=== PATIENT | male | born 1955 | race Caucasian/White ===

== ENCOUNTER 2025-07-08 14:44 | Emergency (ER) | payer MEDICARE, OTHER, SELFPAY ==
[2025-07-08 14:46] VITALS: BP 146/96
[2025-07-08 15:22] LABS: Hematocrit 39.6 % (39.0-52.0); Hemoglobin 13.8 g/dL (13.0-18.0); Mean Corp Hgb Conc. 34.8 g/dL (33.0-37.0); Mean Corpuscular Volume 89.2 fL (80.0-94.0); Platelet Count 256 10^3/uL (130-400); Red Cell Dist. Width 12.7 % (11.5-14.5)
[2025-07-08 15:29] LABS: Blood Urea Nitrogen 12 mg/dl (9-20); Calcium 9.3 mg/dl (8.4-10.2); Carbon Dioxide 29 mmol/L (22-30); Chloride 100 mmol/L (98-107); Glucose 109 mg/dl (70-99); Potassium 3.7 mmol/L (3.5-5.1); Sodium 134 mmol/L (135-145); eGFR > 60.00
--- NOTE | 2025-07-08 17:45 | ED.GENMED ---
History of Present Illness
General
Chief Complaint: DVT/Possible Blood Clot
Source: patient
Exam Limitations: none
Time Seen by Provider: 07/08/25 16:41
Nursing documentation reviewed up to this point in time: agreed with
History of Present Illness
History of Present Illness:
69-year-old male past medical history of CAD hypertension hyperlipidemia presenting to the emergency department today with concerns of right leg pain. Had a total knee replacement 6 days ago otherwise felt well at that time has been constipated
since with some nausea felt lightheaded on the toilet as well with straining. Has noticed some worsening right calf pain. Home visiting nurse recommended going to the ER for assessment of possible clot. Denies specific chest pain or palpitations.
No history of blood clots.
Past History
Past History
ED Past Medical History: CAD, HTN and Hypercholesterolemia
ED Past Surgical History: Cardiac and Orthopedic
Social History
Tobacco: Non-smoker
Alcohol: None
Drug: None
Living: with family
Employment: Employed
Family History
Family History: Other (father with CA)
Review of Systems
Review of Systems
Allergies reviewed?: Yes
All Other Systems: ROS reviewed and negative except as documented in HPI and ROS
Phy Exam
Physical Exam
Physical Exam:
GENERAL: Alert , in no apparent distress
EYE: pupils equal and reactive
NECK: Supple, no significant adenopathy.
ENT: o/p clr, mmm.
CARDIAC: Regular rate and rhythm .
LUNGS: Clear breath sounds bilaterally, no acute respiratory distress, no wheezes/rales/rhonchi
ABDOMEN: Soft, without focal tenderness, no r/g, no cvat
NEUROLOGICAL: Alert and oriented, no focal neuro deficits
SKIN: Warm and dry, skin intact.
MUSCULOSKELETAL: Bandage in place overlying the right anterior surrounding ecchymosis to the right knee as well as the medial thigh of the right leg, diffuse edema, well perfused.
PSYCH: Normal and appropriate interaction.
Course
Orders/Labs/Results
Orders:
Orders
07/08/25 15:07
Basic Metabolic Panel Urgent
CBC/No Diff [Complete Blood Count/No Diff] Urgent
07/08/25 15:29
US Periph Venous LOWER Ext RT Urgent
Comment:
Reason For Exam: pain
07/08/25 17:24
EKG [Electrocardiogram (*1)] Urgent
Reason for Study: Fatigue / Weakness
EKG- Treatment ONCE
07/08/25 17:38
0.9% Sodium Chloride 1000 ml [Nss] 1,000 ml IV BOLUS
Metoclopramide [Reglan] 10 mg IV NOW STA
Abnormal Lab Results
07/08/25
15:07
WBC 13.2 H 10^3/uL
(4.8-10.8)
RBC 4.44 L 10^6/uL
(4.70-6.10)
MCH 31.1 H pg
(27.0-31.0)
Sodium 134 L mmol/L
(135-145)
Glucose 109 H mg/dl
(70-99)
07/08/25 15:07
07/08/25 15:07
Vital Signs
Initial and Last Documented VS:
Initial Vital Signs
Temp Pulse Resp BP Pulse Ox
97.7 F 99 18 146/96 98
07/08/25 14:46 07/08/25 14:46 07/08/25 14:46 07/08/25 14:46 07/08/25 14:46
Last Documented Vital Signs
Temp Pulse Resp BP Pulse Ox
97.7 F 90 18 132/68 98
07/08/25 14:46 07/08/25 19:28 07/08/25 19:28 07/08/25 19:28 07/08/25 19:28
MDM/Problems Addressed
MDM/Problems Addressed:
69-year-old male presenting to the emergency department today with concerns of right leg pain as well as constipation and nausea over the past few days. Recently had right-sided total knee replacement 6 days ago. Ultrasound did not show signs of
DVT labs unremarkable. Headache improved after Reglan no signs of emergent process advised for close outpatient follow-up. Return precautions given.
*Pulse Oximetry
SaO2: 98
Oxygen Mode of Delivery: Room air
Patient hypoxic: no (98)
*Critical Care Note
Total Time (30-74mins, 75-104mins- exclusive of procedures): Not Applicable
ED Attending Note
-
Portions of this chart may have been created with voice recognition software.� Occasional wrong word or��sound alike� substitutions may have occurred due to the inherent limitations of voice recognition software.
Discharge Plan
Departure
Patient Disposition: Home (Routine Discharge)
Date of Disposition: 07/08/25
Time of Disposition: 19:49
Patient with high blood pressure during this ER visit?: No
Condition: Good
Covid-19: Not Applicable
Discharge Problem:
Constipation, Leg pain, Headache
Prescriptions:
New
metoclopramide HCl [Reglan] 10 mg tablet
10 mg PO Q6H PRN (Reason: nausea and vomiting) Qty: 7 0RF
No Action
atorvastatin 20 MG tablet
20 mg PO QPM
ondansetron HCl 4 MG tablet
4 mg PO Q6HPRN PRN (Reason: nausea)
venlafaxine [Effexor XR] 150 MG capsule,extended release 24hr
150 mg PO DAILY
Patient Comments:
Per [facility] pharm[facility] has not been picked up since Dec 2019
modafinil 200 MG tablet
200 mg PO DAILY
aspirin 325 MG tablet,delayed release (DR/EC)
325 mg PO DAILY
trazodone 100 MG tablet
200 mg PO DAILY
oxycodone 5 MG tablet
1 - 2 tab PO Q6HPRN PRN (Reason: pain)
amlodipine-benazepril 1 EACH capsule
1 ea PO DAILY
Referrals:
Real Braden DO [Family Provider, Family Practice]
Activity Restrictions/Additional Instructions:
You came to the emergency department today with multiple symptoms. Here there is no evidence of blood clot on your ultrasound your labs did not show any emergent findings. Please take the Reglan every 8 hours as needed for nausea. You can also
take MiraLAX once daily as well as magnesium citrate to help with your constipation. Return for any worsening, new or concerning symptoms.
Interventions
Interventions:
*Risk Screen - Suicide Last Done: 07/08/25 14:46
*Nursing Disposition Last Done: 07/08/25 19:53
ED- Cardiac Assessment Last Done: 07/08/25 16:10
ED- Pulmonary Assessment Last Done: 07/08/25 16:10
ED-Peripheral Vascular Assessment Last Done: 07/08/25 16:10
ED-Skin Assessment Last Done: 07/08/25 16:10
Discharge Date and Time
Discharge Date/Time: 07/08/25 20:17
Print Language: [place]AST [place]
[2025-07-08] MEDS: NSS 1000 IV (17:46)
[2025-07-08] MEDS: REGLAN 10 MG IV (17:46)
[2025-07-08 19:28] VITALS: BP 132/68
== END 2025-07-08 20:17 | disposition home or self-care (01) ==
LOC: EMR 14:44
PROVIDERS: Emergency Medicine; EMERGENCY PHYSICIAN Emergency Medicine; FAMILY PHYSICIAN Family Medicine
DX: K59.00 Constipation, unspecified (principal); M79.661 Pain in right lower leg; R51.9 Headache, unspecified; I25.10 Atherosclerotic heart disease of native coronary artery without angina pectoris; I10 Essential (primary) hypertension; E78.00 Pure hypercholesterolemia, unspecified; Z96.651 Presence of right artificial knee joint
CPT/HCPCS: 99284; 96374; 96361; 80048; 85027; 93005; 93971

== ENCOUNTER 2025-08-13 16:46 | Emergency (ER) | payer MEDICARE, OTHER, SELFPAY ==
[2025-08-13 16:53] VITALS: BP 156/104
[2025-08-13 16:59] LABS: Glucose - Point of Care 99 mg/dl (70-99)
[2025-08-13 17:00] VITALS: BP 155/83; BMI 29.4
--- NOTE | 2025-08-13 17:06 | ED.CVA ---
History of Present Illness
General
Chief Complaint: CVA/TIA Symptoms
Source: patient
Exam Limitations: none
Time Seen by Provider: 08/13/25 16:59
Onset of Stroke Symptoms
Onset of symptoms known: Yes
Date of onset of symptoms: 08/13/25
History of Present Illness
History of Present Illness:
See MDM
Past History
Past History
ED Past Medical History: CAD, HTN and Hypercholesterolemia
ED Past Surgical History: Cardiac and Orthopedic
Social History
Tobacco: Non-smoker
Alcohol: None
Drug: None
Living: with family
Employment: Employed
Family History
Family History: Other (father with [place])
Phy Exam
Physical Exam
Physical Exam:
See MDM
Scores
NIH Stroke Score
Level of Consciousness: 0 - Alert
LOC Questions: 0-Answers both correctly
LOC Commands: 0-Performs both correctly
Best Horizontal Gaze: 0-Normal
Visual Judge: 0=Normal, no visual loss
Facial Palsy: 0=Normal, symmetrical
Motor - Right Arm: 0=No drift 10 seconds
Motor - Left Arm: 0=No drift 10 seconds
Motor - Right Le-No drift 5 seconds
Motor - Left Le-No drift 5 seconds
Limb Ataxia: 0-Absent
Sensation: 0-Normal
Best Language: 0-No aphasia
Dysarthria: 0-Normal
Extinction and Inattention: 0-No abnormality
NIH Total Score:: 0
Course
Orders/Labs/Results
Orders:
Orders
08/13/25 17:05
Electrocardiogram (*1) Urgent
Reason for Study: TIA/Stroke
CT BRAIN PERF STROKE ALERT Urgent
Comment:
Reason For Exam: double vision, left arm numbness
CT HEAD STROKE ALERT W/o Cont Urgent
Comment:
Reason For Exam: double vision, left arm numbness
CT HEAD/NECK ANG STROKE ALERT Urgent
Comment:
Reason For Exam: double vision, left arm numbness
EKG- Treatment ONCE
08/13/25 17:07
Complete Blood Count/With Diff Urgent
Comprehensive Metabolic Panel Urgent
PTT Urgent
Prothrombin Time Urgent
Troponin I Urgent
08/13/25 18:51
Troponin I Urgent
Abnormal Lab Results
08/13/25
17:07
RBC 4.60 L 10^6/uL
(4.70-6.10)
MCH 32.0 H pg
(27.0-31.0)
Absolute Monos (auto) 0.8 H 10^3/uL
(0.1-0.6)
Monocytes % 10.9 H %
(1.7-9.3)
Glucose 101 H mg/dl
(70-99)
08/13/25 17:07
08/13/25 17:07
Vital Signs
Initial and Last Documented VS:
Initial Vital Signs
Temp Pulse Resp BP Pulse Ox
97.4 F 84 18 156/104 98
08/13/25 16:53 08/13/25 16:53 08/13/25 16:53 08/13/25 16:53 08/13/25 16:53
Last Documented Vital Signs
Temp Pulse Resp BP Pulse Ox
97.4 F 81 19 155/83 94
08/13/25 16:53 08/13/25 19:15 08/13/25 18:30 08/13/25 17:00 08/13/25 19:15
MDM/Problems Addressed
Differential Diagnosis Includes:
Note:
CHIEF COMPLAINT(S)
Double vision with a history concerning for cerebrovascular events.
HISTORY OF PRESENT ILLNESS
The patient is a 70-year-old male presenting with sudden onset double vision that started approximately 45 minutes prior to this assessment. The patient reports that while watching television, he experienced the image moving to one side, which he
describes as double vision. He also mentioned experiencing tingling and numbness in his left arm. He expressed a general feeling of not being quite right. The patient disclosed a history of a transient ischemic attack that occurred approximately one
year ago. There is currently no report of being on anticoagulant therapy, as the patient is taking four 81 mg aspirin tablets daily. The patient does not describe any room-spinning sensation and denies dizziness that would prevent ambulation.
Stroke alert called in triage and I evaluated pt immediately.
PHYSICAL EXAM
General: Alert, no acute distress.
Skin: Warm, dry.
Head: Normocephalic, atraumatic
Neck: Appears supple, trachea midline.
Eyes, Ears, Nose, Mouth, and Throat: Oral mucosa moist. EOMI. No visual field cut
Cardiovascular: No signs of cyanosis. Regular rate and rhythm
Respiratory: Respirations are non-labored.
Abdomen: Non-distended
Musculoskeletal: No deformities
Neurological: No focal neurological deficit observed. Normal finger-nose.
Psychiatric: Cooperative, appropriate mood and affect.
PLAN
1. Neurological assessment to rule out possible cerebrovascular event such as a stroke.
2. Consult with neurology for further evaluation and management plan.
3. Monitor symptoms for changes or resolution.
DIFFERENTIAL DIAGNOSIS
The Differential Diagnosis includes, in no particular order and is not limited to:
1. Transient Ischemic Attack (TIA)
2. Stroke
3. Migraine with aura
4. Vestibular disorder
5. Ophthalmological issues such as retinal detachment
6. Hypertensive emergency
7. Diabetes-related complications affecting vision
8. Multiple sclerosis
9. Brain tumor or mass
10. Hyperglycemia-related vision changes
EKG
My independent EKG interpretation is:
- Rhythm: Normal sinus rhythm
- Heart Rate: 65 beats per minute
- [place]: Normal axis
- ST Segment Changes: None observed
- T Wave Inversions: None observed
10/06/25 - 18:[address] angiogram negative. Symptoms resolved. Patient had a fleeting episode of jaw pain. Discussed potential anxiety relation; will obtain second troponin. If second troponin negative, will place on cardiac callback tracker. NIH stroke
scale remains zero. Patient medically optimized on baby aspirin and atorvastatin.
SUMMARY OF ENCOUNTER
The 70-year-old male patient presented to the emergency department with a sudden onset of double vision and a feeling of numbness and tingling in his arm. This episode was highly concerning for a possible cerebrovascular event, given his previous
history of a transient ischemic attack and was evaluated immediately. During his stay in the emergency department, continuous monitoring showed no acute distress, and the patients symptoms resolved. A CT head and CT angiogram were conducted and
returned negative. Both troponin tests were negative, ruling out cardiac ischemia. Following resolution of symptoms, the patient felt comfortable and expressed understanding and compliance with discharge instructions and follow-up precautions.
DISPOSITION
Discharge.
ASSESSMENT
The patients symptoms were most likely transient in nature and have resolved. The risk of a cerebrovascular event like a stroke was minimal, as indicated by diagnostic tests. Anxiety may have contributed to the episode, though further evaluation in
an outpatient setting is advised.
PLAN
1. Place the patient on the cardiac callback tracker for further monitoring.
2. Advise follow-up with outpatient cardiology.
3. Continue current medications, specifically aspirin therapy.
4. Patient to return if symptoms reoccur or worsen.
INDEPENDENT REVIEW OF LABS AND INTERPRETATION OF TESTS
My independent review of EKG indicates normal sinus rhythm, heart rate of 65 beats per minute, normal axis, with no ST segment changes or T wave inversions.
My independent review of the CT head and CT angiogram indicates no acute findings.
PATIENT EDUCATION AND COUNSELING
The patient was informed about the importance of recognizing symptoms of stroke and transient ischemic attacks, with instructions on when to seek immediate medical attention. He was educated on the significance of follow-up care and managing his
risk factors effectively.
FOLLOW-UP INSTRUCTIONS
Patient is advised to follow up with the cardiology team in the outpatient setting as soon as possible.
MEDICATION RECONCILIATION
The patient is currently optimized on aspirin therapy and atorvastatin for cardiovascular protection.
MEDICAL DECISION MAKING
-Chronic conditions affecting care: Transient ischemic attack (TIA), previous.
Differential Diagnosis:
1. Transient Ischemic Attack (TIA)
2. Stroke
3. Migraine with aura
4. Vestibular disorder
5. Ophthalmological issues such as retinal detachment
6. Hypertensive emergency
7. Diabetes-related complications affecting vision
8. Multiple sclerosis
9. Brain tumor or mass
10. Hyperglycemia-related vision changes
-Data:
Category 1
The following tests were reviewed and interpreted: my independent EKG showing normal sinus rhythm, normal axis, and no ischemic changes.
Category 3
Discussion regarding patient care was held with neurology for evaluation and management plan.
-Risk:
Consideration of Admission/Observation: Escalation of care including admission/observation was considered given the complexity and risk of the patients presenting complaint, exam findings, and underlying comorbidities. However, I feel the patient is
safe for outpatient management with close follow-up. Reasoning: Work-up was reassuring, did not reveal any acute life/organ-threatening processes, patients symptoms were well controlled upon reevaluation, reexamination was reassuring, vitals were
stable, patient agreed with discharge, and was reliable for follow-up.
DIAGNOSIS
1. Transient Ischemic Attack (TIA), resolved - ICD-10: G45.9
2. Double vision, transient - ICD-10: H53.2
*Pulse Oximetry
SaO2: 98
Oxygen Mode of Delivery: Room air
Patient hypoxic: no
*Critical Care Note
Total Time (30-74mins, 75-104mins- exclusive of procedures): Not Applicable
ED Attending Note
-
Portions of this chart may have been created with voice recognition software.� Occasional wrong word or��sound alike� substitutions may have occurred due to the inherent limitations of voice recognition software.
Discharge Plan
Departure
Patient Disposition: Home (Routine Discharge)
Date of Disposition: 08/13/25
Time of Disposition: 19:33
Patient with high blood pressure during this ER visit?: Yes
Discharge Problem:
Arm numbness left
Instructions: Chest Pain CBC Follow Up
Prescriptions:
No Action
atorvastatin 20 MG tablet
20 mg PO QPM
ondansetron HCl 4 MG tablet
4 mg PO Q6HPRN PRN (Reason: nausea)
venlafaxine [Effexor XR] 150 MG capsule,extended release 24hr
150 mg PO DAILY
Patient Comments:
Per [facility] pharm[facility] has not been picked up since Dec 2019
modafinil 200 MG tablet
200 mg PO DAILY
aspirin 325 MG tablet,delayed release (DR/EC)
325 mg PO DAILY
trazodone 100 MG tablet
200 mg PO DAILY
oxycodone 5 MG tablet
1 - 2 tab PO Q6HPRN PRN (Reason: pain)
amlodipine-benazepril 1 EACH capsule
1 ea PO DAILY
metoclopramide HCl [Reglan] 10 mg tablet
10 mg PO Q6H PRN (Reason: nausea and vomiting) Qty: 7 0RF
Referrals:
Rael Braden DO [Family Provider, Family Practice]
Vance Regan MD [Active, Cardiology]
Activity Restrictions/Additional Instructions:
Please return for any worsening symptoms.
You may return at any time if you have further concerns.
Please follow up with your doctor at the first available appointment, preferably this week.
You were placed on the cardiac callback tracker. Someone from their office should call you in the next few days. If you do not hear from them in the next few days, please give them a call.
Thank you for choosing [facility].
Interventions
Interventions:
*Risk Screen - Suicide Last Done: 08/13/25 16:53
*General Assessment Last Done: 08/13/25 16:53
*ED- Fall Risk Assessment Last Done: 08/13/25 17:01
*ED COVID-19 Vaccine History Last Done: 08/13/25 17:01
*ED Influenza Vaccine History Last Done: 08/13/25 17:01
ED- Pulmonary Assessment Last Done: 08/13/25 17:01
ED- Neurological Assessment Last Done: 08/13/25 17:44
ED- Cardiac Assessment Last Done: 08/13/25 17:01
Discharge Date and Time
Print Language: POLISH
[2025-08-13 17:17] LABS: Hematocrit 41.8 % (39.0-52.0); Hemoglobin 14.7 g/dL (13.0-18.0); Mean Corp Hgb Conc. 35.2 g/dL (33.0-37.0); Mean Corpuscular Volume 90.9 fL (80.0-94.0); Nucleated Red Blood Cells % 0 % (-); Platelet Count 190 10^3/uL (130-400); Red Cell Dist. Width 13.1 % (11.5-14.5)
[2025-08-13 17:24] LABS: INR 0.92; PT 12.7 Sec (11.4-14.6)
[2025-08-13 17:25] LABS: APTT 29.9 Sec (23.4-35.0)
[2025-08-13 17:33] LABS: ALT (SGPT) 18 U/L (0-50); AST (SGOT) 27 U/L (17-59); Albumin 4.5 g/dl (3.5-5.0); Alkaline Phosphatase 66 U/L (38-126); Blood Urea Nitrogen 12 mg/dl (9-20); Calcium 9.1 mg/dl (8.4-10.2); Carbon Dioxide 27 mmol/L (22-30); Chloride 101 mmol/L (98-107); Estimated Creatinine Clearance 97 ml/min; Glucose 101 mg/dl (70-99); Potassium 3.6 mmol/L (3.5-5.1); Sodium 136 mmol/L (135-145); Total Protein 7.0 g/dl (6.3-8.2); eGFR > 60.00
[2025-08-13 17:39] LABS: Troponin I < 0.012 ng/ml
[2025-08-13 19:22] LABS: Troponin I < 0.012 ng/ml
== END 2025-08-13 20:14 | disposition home or self-care (01) ==
LOC: EMR 16:46
PROVIDERS: EMERGENCY PHYSICIAN Student in an Organized Health Care Education/Training Program; FAMILY PHYSICIAN Family Medicine
DX: R20.0 Anesthesia of skin (principal); H53.2 Diplopia; I10 Essential (primary) hypertension; I25.10 Atherosclerotic heart disease of native coronary artery without angina pectoris; E78.00 Pure hypercholesterolemia, unspecified; Z79.82 Long term (current) use of aspirin; Z86.73 Personal history of transient ischemic attack (TIA), and cerebral infarction without residual deficits
CPT/HCPCS: 99285; 0042T; 70450; 70496; 70498; 80053; 82962; 84484; 85025; 85610; 85730; 93005; Q9967